=== PATIENT | male | born 1960 | race African-American/Black ===

== ENCOUNTER 2020-07-03 17:44 | Emergency (ER) | payer MEDICAID ==
[~2020-07-03] VITALS: Ht 170.2 cm; Wt 90.9 kg
[2020-07-03 17:52] VITALS: BP 140/78
[2020-07-03] MEDS ORDERED: PROPARACAINE HCL 0.5% 15 ML OPHTHALMIC SOLUTION OU ONE (18:30)
== END 2020-07-03 18:44 | disposition home or self-care (01) ==
LOC: EMS 17:44
DX: H10.89 Other conjunctivitis (principal)

== ENCOUNTER 2023-01-10 20:44 | Emergency (ER) | payer MEDICAID ==
[~2023-01-10] VITALS: Ht 170.2 cm; Wt 86.4 kg
[2023-01-10] MEDS ORDERED: SODIUM CHLORIDE 0.9% 1,000 ML IV ONE (22:15)
[2023-01-10 22:17] LABS: BASOPHILS % (AUTO) 0.2 % (0.0-2.0); EOSINOPHILS % (AUTO) 0 % (1.0-6.0); HEMATOCRIT 41.9 % (41-53); HEMOGLOBIN 13.7 g/dL (13.5-17.5); LYMPHOCYTES # (AUTO) 1.5 K/uL (1.0-4.8); LYMPHOCYTES % (AUTO) 11.8 % (22.0-44.0); MEAN CORPUSCULAR HEMOGLOBIN 29.9 pg (26.0-34.0); MEAN CORPUSCULAR HGB CONC 32.7 G/dL (31.0-37.0); MEAN CORPUSCULAR VOLUME 91 fL (80-100); MONOCYTES # (AUTO) 1.6 K/uL (0.1-1.0); MONOCYTES % (AUTO) 13.1 % (2.0-9.0); NEUTROPHILS # (AUTO) 9.3 K/uL (1.8-7.7); NEUTROPHILS % (AUTO) 74.9 % (40.0-70.0); PLATELET COUNT (AUTO) 219 K/uL (150-450); RED BLOOD CELL COUNT(AUTO) 4.59 MIL/uL (4.50-5.90); RED CELL DISTRIBUTION WIDTH 14.7 % (11.5-14.5)
[2023-01-10 22:25] LABS: CALCIUM, TOTAL 8.8 mg/dL (8.8-10.5); CREATININE 1.89 mg/dL (0.60-1.30); POTASSIUM 3.7 mmol/L (3.5-5.1)
[2023-01-10 22:32] LABS: BILIRUBIN,TOTAL 0.5 mg/dL (0.1-1.0); MAGNESIUM 2.9 mg/dL (1.80-2.40); TOTAL PROTEIN, SERUM 7.9 g/dL (6.4-8.2)
[2023-01-10 22:36] LABS: LACTIC ACID 1.5 mmol/L (0.4-2.0)
[2023-01-10 23:19] LABS: ALBUMIN 2.7 g/dL (3.4-5.0)
[2023-01-11 00:50] VITALS: BP 140/56
[2023-01-11] MEDS ORDERED: DIPHENOXYLATE/ATROP 2.5-0.025 MG TABLET PO ONE (01:00)
[2023-01-11] MEDS ORDERED: MetroNIDAZOLE 250 MG TABLET PO ONE (01:00)
[2023-01-11] MEDS ORDERED: LEVOFLOXACIN 500 MG/D5% WATER 100 ML IV ONE (01:00)
== END 2023-01-11 05:03 | disposition home or self-care (01) ==
LOC: EMS 20:45
DX: K52.9 Noninfective gastroenteritis and colitis, unspecified (principal); F12.90 Cannabis use, unspecified, uncomplicated; F17.210 Nicotine dependence, cigarettes, uncomplicated
CPT/HCPCS: 99285; 74176; 96361; 80053; 83605; 83690; 83735; 85025; 96365; 71045; J7030; J1956